=== PATIENT | female | born 1985 | race Caucasian/White ===

== ENCOUNTER → 2023-07-28 | Outpatient (CLI) | payer OTHER ==
--- NOTE | 2023-07-28 16:04 | BD ---
EXAMINATION TYPE: Axial Bone Density DATE OF EXAM: 07/28/2023 CLINICAL HISTORY: 38 years old Female. ICD-10 CODE: M85.88 OT DISRD OF BONE DENSITY Height: 62" Weight: 122.7lbs FRAX RISK QUESTIONS: Alcohol (3 or more units per day): No Family History (Parent hip fracture): No Glucocorticoids (More than 3mos): No (Ex: prednisone, prednisolone, methylprednisolone, dexamethasone, and hydrocortisone). History of Fracture in Adulthood: No Secondary Osteoporosis: 1. Type 1 Diabetes: No 2. Hyperthyroidism: No 3. Menopause before 45: N/A 4. Malnutrition: No 5. Chronic liver disease: No Rheumatoid Arthritis: No Current Tobacco Use: No RISK FACTORS HISTORY OF: Hip Fracture (Right/Left): No Spine Fracture: No History of Wrist Fracture: No Surgery to Spine/Hip(right/left)/Wrist (right/left): No MEDICATIONS: Thyroid Medications: No Osteoporosis Medications: No EXAM MEASUREMENTS: Bone mineral densitometry was performed using the [employer] System. Bone mineral density as measured about the Lumbar spine is: ----- L1-L4(G/cm2): 1.189 T Score Values are as follows: ----- L1: 0.3 ----- L2: 0.3 ----- L3: 0.2 ----- L4: -0.5 ----- L1-L4: 0.1 Z Score Values are as follows: ----- L1: 0.6 ----- L2: 0.6 ----- L3: 0.5 ----- L4: -0.2 ----- L1-L4: 0.4 Baseline @MPH Bone mineral density about the R hip (g/cm2): 0.965 Bone mineral density about the L hip (g/cm2): 0.929 T Score values are as follows: -----R Neck: -1.7 -----L Neck: -0.9 -----R Total: -0.3 -----L Total: -0.6 Z Score values are as follows: -----R Neck: -1.1 -----L Neck: -0.3 -----R Total: 0.1 -----L Total: -0.2 Baseline @MPH FRAX%s: The graph provided illustrates a 2.3% chance for a major osteoporotic fx and a 0.3% chance fo r the hips probability for fx in 10 years time. IMPRESSION: Osteopenia (T Score between -2.5 and -1). There is slightly increased risk of fracture and the patient may be considered for treatment. Re-Screen 2-5 years. NOTE: T-SCORE=SD OF THE YOUNG ADULT MEAN.
--- NOTE | 2023-07-29 21:49 | MM ---
Reason for Exam: Screening (asymptomatic). Baseline mammogram. Patient History: Menarche at age 12. Currently using Hormonal Contraceptives, starting at age 35. Risk Values: Myra 5 year model risk: 0.4%. NCI Lifetime model risk: 6.7%. Prior Study Comparison: Patient's first Mammogram. No prior studies available for comparison. Tissue Density: The breast tissue is heterogeneously dense. This may lower the sensitivity of mammography. Findings: Analyzed By CAD. Areas of focal asymmetry medially in the left breast for which further evaluation is recommended. Otherwise, no suspicious calcification or other discrete abnormality is seen. Overall Assessment: Incomplete: need additional imaging evaluation, BI-RAD 0 Management: Special View Mammogram of the left breast. Diagnostic Breast Ultrasound of the left breast. . [facility] will attempt to contact patient to return for supplemental views and ultrasound if indicated. Electronically signed and approved by: Alison Marqeuz M.D. Radiologist
== END | disposition home or self-care (01) ==
LOC: RADBDWWP 12:49
PROVIDERS: ATTEND Family Medicine
DX: Z12.31 Encounter for screening mammogram for malignant neoplasm of breast (principal); M85.89 Other specified disorders of bone density and structure, multiple sites
CPT/HCPCS: 77067; 77080

== ENCOUNTER → 2023-08-06 | Outpatient (CLI) | payer OTHER ==
--- NOTE | 2023-08-07 09:42 | MM ---
Reason for Exam: Additional evaluation requested from abnormal screening. Last screening mammogram was performed less than 1 month ago. Patient History: Menarche at age 12. Currently using Hormonal Contraceptives, starting at age 35. Risk Values: Myra 5 year model risk: 0.4%. NCI Lifetime model risk: 6.7%. Prior Study Comparison: 07/28/2023 Bilateral MG screening mammo w CAD, PH. Tissue Density: Left: The breast tissue is heterogeneously dense. This may lower the sensitivity of mammography. Findings: Analyzed By CAD. The medial areas of asymmetric density become less defined on additional spot 3-D and 3-D lateral images. Superimposition shadow is suggested. As we only have the patient's baseline exam as a prior, six-month follow-up mammogram is recommended. Overall Assessment: Probably benign, BI-RAD 3 Management: Diagnostic Mammogram of the left breast in 6 months. Results were given to the patient verbally at the time of exam. Patient should continue monthly self-breast exams. A clinical breast exam by your physician is recommended on an annual basis. This exam should not preclude additional follow-up of suspicious palpable abnormalities. Note on Myra scores and lifetime risk: 1. A Myra score greater than 3% is considered moderate risk. If this is the case, consider specialist referral to assess eligibility for a risk reducing agent. 2. If overall lifetime risk for the development of breast cancer is 20% or higher, the patient may qualify for future screening with alternating mammogram and breast MRI. Electronically signed and approved by: Alison Marquez M.D. Radiologist
== END | disposition home or self-care (01) ==
LOC: RADMAMWWP 13:31
PROVIDERS: ATTEND Family Medicine
DX: R92.332 Mammographic heterogeneous density, left breast (principal)
CPT/HCPCS: 77065; G0279; 77061